=== PATIENT | male | born 1990 | race African-American/Black ===

== ENCOUNTER 2021-03-23 00:35 | Emergency (ER) | payer SELFPAY ==
[~2021-03-23] VITALS: Ht 175.3 cm; Wt 127.0 kg
[2021-03-23 00:57] VITALS: BP 178/98
== END 2021-03-23 03:00 | disposition left against medical advice (07) ==
LOC: ER 00:35
DX: H57.89 Other specified disorders of eye and adnexa (principal); Z53.21 Procedure and treatment not carried out due to patient leaving prior to being seen by health care provider